=== PATIENT | female | born 1950 | race Caucasian/White ===

== ENCOUNTER → 2017-06-05 | Outpatient (CLI) | payer BC ==
[~2017-06-05] MED LIST: CSPOPS; IBUP-1050 PO
--- NOTE | 2017-06-05 14:38 | MAMMOGRAPHY REPORT ---
BILATERAL DIGITAL SCREENING MAMMOGRAM WITH CAD: 06/05/2017 CLINICAL HISTORY: Routine screening examination. TECHNIQUE: Bilateral CC and MLO views were obtained. Current study was also evaluated with a Compute r Aided Detection (CAD) system. COMPARISON: Comparison is made to exams dated: 05/30/2016 mammogram, 05/26/2015 mammogram, 12/07/2014 sarah mogram, 06/04/2014 ultrasound, 06/04/2014 mammogram, and 05/25/2014 mammogram - [facility]. BREAST COMPOSITION: There are scattered areas of fibroglandular density in both breasts. FINDINGS: There are scattered stable benign-appearing microcalcifications. No new suspicious mass, a rchitectural distortion or cluster of microcalcifications is seen. IMPRESSION: ACR BI-RADS CATEGORY 1: NEGATIVE There is no mammographic evidence of malignancy. A 1 year screening mammogram is recommended. The pa tient will receive written notification of the results. Approximately 10% of breast cancers are not detected with mammography. A negative mammographic report should not delay biopsy if a clinically suggestive mass is present. Sonia Stephens M.D. ay/:06/05/2017 10:43:36 Instructional Material Director: Kyara JEROME(Tamera)(Blas), [facility] letter sent: Normal 1/2 BI-RADS Code: ACR BI-RADS Category 1: Negative
== END | disposition home or self-care (01) ==
LOC: C.MAMM 10:26
PROVIDERS: ATTEND Family Medicine
DX: Z12.31 Encounter for screening mammogram for malignant neoplasm of breast (principal)

== ENCOUNTER 2017-12-18 11:39 | Emergency (ER) | payer OTHER ==
[~2017-12-18] VITALS: Ht 167.6 cm; Wt 76.6 kg
[2017-12-18 11:42] VITALS: TEMP 36.8; Ht 167.6 cm; Wt 76.6 kg
[2017-12-18] MEDS ORDERED: LIDOCAINE/EPINEPHRINE 1% 20 ML VIAL INFIL STA (12:04)
--- NOTE | 2017-12-18 12:22 | DIAGNOSTIC IMAGING REPORT ---
HEAD WITHOUT CONTRAST (CT) CLINICAL HISTORY: 67 years-old Female with Fall, head trauma. Acute head injury status post fall TECHNIQUE: Multiple axial CT images of the head were obtained without contrast. A dose lowering technique was utilized adhering to the principles of ALARA. CT DOSE: 537.48 mGy.cm COMPARISON: None. FINDINGS: No acute intracranial hemorrhage, midline shift, intracranial mass, hydrocephalus, territorial ischemia or abnormal extra-axial collection. The calvarium is intact. Mastoid air cells and middle ear cavities are clear. Paranasal sinuses are also clear. Mild leftward bowing and spurring of the nasal septum. 2.1 x 0.7 cm Central frontal scalp hematoma is noted with mild associated soft tissue swelling. Multiple foci of subcutaneous emphysema compatible with laceration. No opaque foreign body. Prosthetic left globe is noted. Right orbit is unremarkable. IMPRESSION: 1. No acute intracranial abnormality identified. 2. 2.1 cm frontal scalp hematoma with laceration and subcutaneous emphysema. No opaque foreign body or calvarial fracture. The above report was generated using voice recognition software. It may contain grammatical, syntax or spelling errors. Electronically signed by: David Sal M.D. 12/18/2017 12:20 PM Dictated Date/Time: 12/18/2017 12:18 PM
--- NOTE | 2017-12-18 12:55 | DIAGNOSTIC IMAGING REPORT ---
L WRIST W/NAVICULAR MIN 3 VIEWS HISTORY: 67 years-old Female Fall, L wrist pain acute left-sided wrist pain status post fall COMPARISON: None available TECHNIQUE: 4 views of the left wrist FINDINGS: There is an acute nondisplaced transversely oriented fracture of the distal radial metaphysis extending into the distal radial ulnar joint. No associated angulation. Mild dorsal cortical buckling is noted. Mild periarticular osteopenia is noted about the carpus and distal forearm. Moderate circumferential soft tissue swelling is noted about the wrist. The distal ulna appears intact. Mild radiocarpal, triscaphe and first carpometacarpal osteoarthritis. IMPRESSION: 1. Acute transverse fracture of the distal radial metaphysis with extension into the distal radioulnar joint. There is mild dorsal cortical buckling without significant displacement or angulation. 2. Moderate associated wrist soft tissue swelling. The above report was generated using voice recognition software. It may contain grammatical, syntax or spelling errors. Electronically signed by: David Sal M.D. 12/18/2017 12:54 PM Dictated Date/Time: 12/18/2017 12:48 PM
[2017-12-18] MEDS ORDERED: LISI5TAB PO (13:06)
[2017-12-18] MEDS ORDERED: FLUO10CA48 PO (13:06)
--- NOTE | 2017-12-18 13:32 | EMERGENCY ROOM VISIT NOTE ---
History First contact with patient: 11:58 Chief Complaint: FALL Stated Complaint: FELL AND HIT HEAD,SWOLLEN LEFT WRIST History of Present Illness The patient is a 67 year old female who presents to the Emergency Room via private vehicle accompanied by female with complaints of "fell and hit head, swollen left wrist". The patient states that earlier today while at work she accidentally fell forward, and struck her forehead and her left wrist off of the ground and a nearby wheel. She did not lose consciousness. She believes her tetanus is up-to-date. She notes pain at the laceration and in her left wrist. She rates the overall pain currently as a 8/10. She also notes abrasion overlying her L anterior knee. Review of Systems A complete 6-point Review of Systems was discussed with the patient, with pertinent positives and negatives listed in the History of Present Illness. All remaining Review of Systems questions can be considered negative unless otherwise specified. Past Medical/Surgical History No pertinent Social History Smoking Status: Never Smoker Current/Historical Medications Scheduled Fluoxetine (Prozac), Unknown Dose PO DAILY Lisinopril (Prinivil), Unknown Dose PO DAILY Physical Exam Vital Signs Date Time Temp Pulse Resp B/P (MAP) Pulse Ox O2 Delivery O2 Flow Rate FiO2 12/18/17 13:36 75 16 163/97 96 12/18/17 11:42 36.8 88 18 164/95 96 Room Air Physical Exam VITAL SIGNS - Vital signs and nursing notes were reviewed. Stable. Hypertensive. GENERAL -67-year-old female appearing her stated age. Communicates well with provider and answers questions appropriately. SKIN - Gross examination of the entire body surface demonstrates a 5 cm scalp laceration laceration in the anterior plane within the hair on the anterior scalp. No step off fx identified. HEAD - Normocephalic, Atraumatic. No Cerna's Sign or Raccoon's Eyes. No depressed skull fractures palpable. EYES - PERRL with EOMI bilaterally. No hyphema. EARS - No deformities of external structures noted on gross examination bilaterally. No hemotympanum present. No tympanic perforation noted. Handle of malleus, umbo, cone of light, pars tensa/flaccid all easily visualized. NOSE - Midline and without cyanosis. No epistaxis or clear watery discharge noted. MOUTH/OROPHARYNX - Without perioral cyanosis. Tongue midline with equal elevation of palate bilaterally. No blood noted in the oropharynx. No tonsillar hypertrophy, erythema, or exudates noted. No dental fractures noted. NECK - No tenderness to palpation over the cervical spinous processes. No cervical paraspinal muscle tenderness noted. EXTREMITIES - No gross deformities noted of the extremities. There is tenderness to palpation overlying the dorsal distal L wrist. She is neurovascularly intact in the region. No other extremity tenderness noted. +5/5 strength noted in UE/LE bilaterally. NEUROLOGIC - Cranial nerves II through XII grossly intact. Sensory intact to light touch throughout. PSYCH - A&O, and cooperates fully with examiner. Pt is very pleasant and interacts well with examiner. Medical Decision & Procedures ER Provider Diagnostic Interpretation: HEAD WITHOUT CONTRAST (CT) CLINICAL HISTORY: 67 years-old Female with Fall, head trauma. Acute head injury status post fall TECHNIQUE: Multiple axial CT images of the head were obtained without contrast. A dose lowering technique was utilized adhering to the principles of ALARA. CT DOSE: 537.48 mGy.cm COMPARISON: None. FINDINGS: No acute intracranial hemorrhage, midline shift, intracranial mass, hydrocephalus, territorial ischemia or abnormal extra-axial collection. The calvarium is intact. Mastoid air cells and middle ear cavities are clear. Paranasal sinuses are also clear. Mild leftward bowing and spurring of the nasal septum. 2.1 x 0.7 cm Central frontal scalp hematoma is noted with mild associated soft tissue swelling. Multiple foci of subcutaneous emphysema compatible with laceration. No opaque foreign body. Prosthetic left globe is noted. Right orbit is unremarkable. IMPRESSION: 1. No acute intracranial abnormality identified. 2. 2.1 cm frontal scalp hematoma with laceration and subcutaneous emphysema. No opaque foreign body or calvarial fracture. The above report was generated using voice recognition software. It may contain grammatical, syntax or spelling errors. Electronically signed by: David Sal M.D. 12/18/2017 12:20 PM Dictated Date/Time: 12/18/2017 12:18 PM L WRIST W/NAVICULAR MIN 3 VIEWS HISTORY: 67 years-old Female Fall, L wrist pain acute left-sided wrist pain status post fall COMPARISON: None available TECHNIQUE: 4 views of the left wrist FINDINGS: There is an acute nondisplaced transversely oriented fracture of the distal radial metaphysis extending into the distal radial ulnar joint. No associated angulation. Mild dorsal cortical buckling is noted. Mild periarticular osteopenia is noted about the carpus and distal forearm. Moderate circumferential soft tissue swelling is noted about the wrist. The distal ulna appears intact. Mild radiocarpal, triscaphe and first carpometacarpal osteoarthritis. IMPRESSION: 1. Acute transverse fracture of the distal radial metaphysis with extension into the distal radioulnar joint. There is mild dorsal cortical buckling without significant displacement or angulation. 2. Moderate associated wrist soft tissue swelling. The above report was generated using voice recognition software. It may contain grammatical, syntax or spelling errors. Electronically signed by: David Sal M.D. 12/18/2017 12:54 PM Dictated Date/Time: 12/18/2017 12:48 PM Medical Decision Patient was seen and evaluated as above. She presents to us today status post mechanical fall with an anterior scalp laceration and left wrist pain. There is also small abrasion over the left anterior knee. No knee tenderness. After obtaining a thorough history and physical examination the above work up was performed. CT of head negative except for laceration. GCS 15. CT obtained secondary to mechanism of injury. Wrist reveals a nondisplaced fracture. Wrist was placed in a volar orthoglas splint. She was neurovascularly intact. Risks and benefits of performing primary wound closure versus no repair were discussed with the patient who verbalizes understanding. Verbal consent was obtained prior to performing the procedure. 4 cc of 1% buffered lidocaine with epinephrine was used to anesthetize the 5 cm laceration. The wound was cleansed and prepped in the typical sterile fashion utilizing normal saline and Betadine. The wound was sterilely draped. Once proper anesthetization was established, the wound was further examined and demonstrated no skull involvement. The wound was copiously irrigated with normal saline and Betadine. The wound was closed using 8 cayetano with the wound edges being well approximated. Patient tolerated the procedure well. No complications were met. The wound was cleansed and dressed with a Bacitracin dressing. Patient was unable to recall the exact date of her last tetanus immunization but believes it was in the past 10 years. She was offered tetanus immunization here but notes that she will call her family doctor to identify if she is up-to-date. Patient educated on worrisome symptoms for return visit to the Emergency Department. Patient discharged to home in good condition. I attest that I have personally reviewed the patient medication list. The patient's blood pressure was reviewed and was found to be elevated at believes secondary to situation. In the evaluation and treatment of this patient, the following differential diagnoses were considered: Concussion, Contrecoup Injury, Brain Tumor, Depression, Encephalitis, Hypothyroidism, Meningitis, CVA, TIA, Migraine, Cluster Headache, Intracranial Abnormality, Intracranial Hemorrhage, Subdural Hematoma, Subarachnoid Hemorrhage, Hydrocephalus, Wrist Sprain, Wrist Fracture, Wrist Dislocation, Scapholunate Dissociation, Carpal Fracture, Metacarpal Fracture, Radial Styloid Process Fracture, Ulnar Styloid Process Fracture, or Carpal Tunnel Syndrome. Impression Primary Impression: Fall Additional Impressions: Contusion of multiple sites Wrist fracture, closed Departure Information Dispostion Home / Self-Care Condition GOOD Referrals Hossein Wilson M.D. (PCP) Angelo Saleem D.O. Patient Instructions My [facility] Additional Instructions You have been treated in the Emergency Department for a Closed Head Injury. CT Scan of your head/brain demonstrated no acute bleeding or other emergent abnormalities. This does not completely rule out the risk for future damage to the brain. Wrist is fractured on the left. Please keep splint in place. Please call Dr. Saleem for followup (or approved workers compensation doctor) You should also follow up with family doctor or approved workers compensation doctor. You have received 7 cayetano on your head. These cayetano are NOT dissolvable and WILL need to be removed by a health care provider in 7-10 days. You can return to the Emergency Department or contact your Primary Care Provider to have these cayetano removed. Proper wound care is essential for adequate wound healing and infection prevention. You can shower and clean the wound with soap and water. Do scour over the wound, pat dry with a towel. Do not submerse the wound until the cayetano have been removed. You can use an antibiotic ointment with a dressing over the wound for the next 3-4 days. After this time you may leave the wound dry and open to the air. If crust develops over the wound you can use a Q-tip to apply a 1:1 peroxide:water solution to clean the wound. Look for signs of infection of the wound including: increased pain, swelling, foul discharge, streaking, or increased temperature. If any of these are noticed you should return to the Emergency Department for further assessment and treatment. As with any laceration you may have received nerve damage to the surrounding tissues. This damage may or may not be permanent. For pain control, you can use the following [id number] medicines (if >12 yo): - Regular strength (325mg/tab) Tylenol (acetaminophen) 2 tabs every 4-6 hours as needed. Do not exceed 12 tablets in a 24 hour period. Avoid taking more than 3 grams (3000 mg) of Tylenol per day. This includes any other sources of acetaminophen you may take on a regular basis. - Regular strength (200 mg/tab) Advil (ibuprofen) 1-2 tabs every 4-6 hours as needed. Do not exceed a dose of 3200 mg per day. Return to the emergency department if your symptoms worsen despite treatment course outlined above. Problem Qualifiers
[2017-12-18 13:36] VITALS: BP 163/97; PULSE 75; O2SAT 96
--- NOTE | 2017-12-18 14:53 | EMERGENCY ROOM VISIT NOTE ---
ED Visit Note First contact with patient: 11:58 Patient was seen by our PA/MICRO COMPUTER SPECIALIST. I was involved in the patient's care and did evaluate the patient myself. I was involved in the care throughout the ER stay. The patient presents with a fall. No evidence for intracranial bleeding by CT. Her scalp laceration was repaired. She has suffered a wrist fracture for which she will see orthopedics in follow-up. She is stable for discharge home.
== END 2017-12-18 13:38 | disposition home or self-care (01) ==
LOC: C.EDB 11:40 → C.EDD 13:38
DX: T14.8XXA Other injury of unspecified body region, initial encounter (principal); S52.502A Unspecified fracture of the lower end of left radius, initial encounter for closed fracture; S01.01XA Laceration without foreign body of scalp, initial encounter; W19.XXXA Unspecified fall, initial encounter; Y92.89 Other specified places as the place of occurrence of the external cause; Y99.0 Civilian activity done for income or pay; Z79.899 Other long term (current) drug therapy

== ENCOUNTER → 2018-06-07 | Outpatient (CLI) | payer BC ==
[~2018-06-07] MED LIST changes: -CSPOPS; +FLUO10CA48 PO; -IBUP-1050 PO; +LISI5TAB PO
--- NOTE | 2018-06-07 15:42 | MAMMOGRAPHY REPORT ---
BILATERAL DIGITAL SCREENING MAMMOGRAM TOMOSYNTHESIS WITH CAD: 06/07/2018 CLINICAL HISTORY: Routine screening. Patient has no complaints. TECHNIQUE: The study was acquired using full field digital technology and interpreted from soft copy. Breast tomosynthesis in addition to standard 2D mammography was performed. Current study was also ev aluated with a Computer Aided Detection (CAD) system. COMPARISON: Comparison is made to exams dated: 06/05/2017 mammogram, 05/30/2016 mammogram, 05/26/2015 sarah mogram, 12/07/2014 mammogram, 05/25/2014 mammogram, and 05/23/2013 mammogram - [facility] BREAST COMPOSITION: There are scattered areas of fibroglandular density in both breasts. FINDINGS: No suspicious masses, calcifications, or areas of architectural distortion are noted in either breast . There has been no significant interval change compared to prior exams. Scattered bilateral benign-a ppearing calcifications are not significantly changed. IMPRESSION: ACR BI-RADS CATEGORY 2: BENIGN There is no mammographic evidence of malignancy. A 1 year screening mammogram is recommended.( 019) The patient will receive written notification of the results. Some breast cancers are not detected with mammography. A negative mammographic report should not priscilla y biopsy if a clinically suggestive mass is present. Zoie Geronimo M.D. /:06/07/2018 15:05:20 Car Pilot: RT Lluvia(R)(M), [facility] letter sent: Normal 1/2 BI-RADS Code: ACR BI-RADS Category 2: Benign
== END | disposition home or self-care (01) ==
LOC: C.MAMM 09:26
PROVIDERS: ATTEND Family Medicine
DX: Z12.31 Encounter for screening mammogram for malignant neoplasm of breast (principal)